=== PATIENT | male | born 1975 | race Caucasian/White ===

== ENCOUNTER → 2017-03-24 | Outpatient (CLI) | payer OTHER | LOC: KOH-I 03-23 10:30 | DX: D86.9 Sarcoidosis, unspecified (principal) | CPT/HCPCS: 71250 ==

== ENCOUNTER → 2017-04-25 | Outpatient (CLI) | payer OTHER | LOC: HEART 5 10:06 | DX: D86.9 Sarcoidosis, unspecified (principal) | CPT/HCPCS: 71020-FX; 94060; 94729 ==